=== PATIENT | female | born 1975 | race Hispanic/Latino ===

== ENCOUNTER 2023-02-22 10:42 | Emergency (ER) | payer BC ==
--- OUTSIDE RECORDS SUMMARY | 2023-02-22 10:47 | XMS REPORT | Continuity of Care Document ---
:1975 Author Organization [facility] t Address [address] [facility] [place] [address] Care Team Providers Name Role Phone QUOC LEDESMA Primary Care Physician Unavailable Elsa Pinto Attending Clinician Unavailable DARCY MCDONALD Attending Clinician Unavailable Darcy Arita Attending Clinician Unknown, Attending Attending Clinician Unavailable Luisa Ball Attending Clinician Trisha Tapia Attending Clinician LUISA LUCERO Attending Clinician Unavailable Doctor Unassigned, [place] Attending Clinician Unavailable BRIAN OLSON Attending Clinician Unavailable Brian Olson MD Attending Clinician Yuki Hoffmann Attending Clinician TRISHA CHANEL Attending Clinician Unavailable Quoc Ledesma MD Attending Clinician Unavailable UNKNOWN, ATTENDING Attending Clinician Unavailable TRAE MATHIS Attending Clinician Unavailable Dede Graf Attending Clinician Provider, [facility] Attending Clinician Unavailable Miguelina Gerber MA Attending Clinician Unavailable Lab, [facility] Attending Clinician Unavailable Payers Payer Name Policy Type Policy Number Effective Date Expiration Date Giancarlo arciniega [facility] [id number] 2022 00:00:00 [employer] 6 [id number] Common Spiri t Blue [facility] Problems Condition Condition Condition Status Onset Resolution Last Treating Co mments Source Name Details Category Date Date Treatment Clinician Date Follow-up Follow-up Disease Active Overview: Univers examinatio examinatio - Formattin ity of n n 00:00: g of this [place] note Medical might be Branch different from the original. ICD10 Diagnosis Term Tag Clerk Utility Abdominal Abdominal Disease Active Overview: Univers pain pain 03-17 Formattin ity of 00:00: g of this [place] note Medical might be Branch different from the original. 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 - [facility] depressive [facility] Irritable IBS Problem Active Common bowel (irritable Spirit syndrome bowel - [facility] syndrome) [facility] Allergies, Adverse Reactions, Alerts Allergy Allergy Status Severity Reaction(s) Onset Inactive Treating Comm ents Source Name Type Date Date Clinician SULFA Drug Active Unknown-Cmnt Univ ers (SULFONA Class 7- ity of MIDE 00:00: [place] ANTIBIOT 00 Medical ICS) Branch Sulfa Propensi Active Unknown - Unive rs (Sulfona ty to See comments 03-17 it y of mide adverse 00:00: [place] Antibiot reaction 00 Medica l ics) s Branch Sulfa Propensi Active Unknown - Unive rs (Sulfona ty to See comments 03-17 it y of mide adverse 00:00: [place] Antibiot reaction 00 Medica l ics) s Branch 0 Drug Active throat Common allergy closes Spirit - [facility] Social History Social Habit Start Date Stop Date Quantity Comments Source History of Common Spirit - Tobacco Use [facility] Sex Assigned At Common Sp chente - [facility] Exposure to 2022-06-07 2022-06-17 Not sure University SARS-CoV-2 00:00:00 11:41:00 [facility] (event) Branch Tobacco use and 2022-06-17 2022-06-17 Smokeless tobacco Un iversity of exposure 00:00:00 00:00:00 non-user [facility] Smoking Status Start Date Stop Date Source Never smoked tobacco [facility] Medications Ordered Filled Start Stop Current Ordering Indication Dosage Frequency Signature Comments Components Source Medication Medication Date Date Medication? Clinician (SIG) Name Name fluticasone 2021-08 Yes [id number] 2{spray Use 2 Univers propionate } Sprays in ity of 50 00:00: each [place] mcg/actuati 00 nostril in Ia dical on nasal the Branch spray morning. amoxicillin 2021-08- No [id number] 1{tbl} Take 1 Univers -clavulanat 0 11-07 tablet by it y of e 00:00: 05:59 mouth in [place] (AUGMENTIN) 00 :00 the Medical 875-125 mg morning Branch per tablet and 1 tablet in the evening. Do all this for 10 days. Nitrofurant 2021- No [id number] 100mg Take 1 Univers oin&Nit. 02-24-12 capsule by ity of [place] 00:00: 04:59 mouth 2 [place] (MACROBID) 00 :00 (two) Medical 100 mg times Branch capsule daily for 5 days. phenazopyri 2021- No [id number] 200mg Take 1 Univers dine 02-24 07-10 tablet by ity of (PYRIDIUM) 00:00: 04:59 mouth 3 [place] 200 mg 00 :00 (three) Medical tablet times Branch daily after meals for 3 days. cephALEXin 2020-08- No [id number] 250mg Take 1 Univers (KEFLEX) 2-24 12-30 capsule by ity of 250 mg 00:00: 05:59 mouth [place] capsule 00 :00 every 6 Medical (six) Branch hours for 5 days. amoxicillin 2020-08- No [id number] 1{tbl} Take 1 Univers -clavulanat 0-31 11-11 tablet by it y of e 875-125 00:00: 05:59 [place] mg per 00 :00 (two) Medical tablet times Branch daily for 10 days. benzonatate 0 Yes [id number] 100mg Take 1 Univers (TESSALON 4-22 capsule by ity of LUISMapplas) 100 00:00: mouth 3 [place] mg capsule 00 (three) Medica l times Branch daily. azelastine Yes [id number] 1{spray Use 1 Univers 137 mcg 4-22 } [place] in ity of (0.1 %) 00:00: each [place] nasal spray 00 nostril 2 Med ical (two) Branch times daily. Use in each nostril as directed benzonatate Yes [id number] 100mg Take 1 Univers (TESSALON 4-22 capsule by ity of CALVIN) 100 00:00: mouth 3 [place] mg capsule 00 (three) Medica l times Branch daily. azelastine Yes [id number] 1{spray Use 1 Univers 137 mcg 4-22 } [place] in ity of (0.1 %) 00:00: each [place] nasal spray 00 nostril 2 Med ical (two) Branch times daily. Use in each nostril as directed benzonatate 0 Yes [id number] 100mg Take 1 Univers (TESSALON 4-22 capsule by ity of CALVIN) 100 00:00: mouth 3 [place] mg capsule 00 (three) Medica l times Branch daily. azelastine Yes [id number] 1{spray Use 1 Univers 137 mcg 4-22 } [place] in ity of (0.1 %) 00:00: each [place] nasal spray 00 nostril 2 Med ical (two) Branch times daily. Use in each nostril as directed benzonatate 0 Yes [id number] 100mg Take 1 Univers (TESSALON 4-22 capsule by ity of LUISMapplas) 100 00:00: mouth 3 [place] mg capsule 00 (three) Medica l times Branch daily. azelastine 2020-0 Yes [id number] 1{spray Use 1 Univers 137 mcg 4-22 } [place] in ity of (0.1 %) 00:00: each [place] nasal spray 00 nostril 2 Med ical (two) Branch times daily. Use in each nostril as directed benzonatate 2020-0 Yes [id number] 100mg Take 1 Univers (TESSALON 4-22 capsule by ity of PERLES) 100 00:00: mouth 3 [place] mg capsule 00 (three) Medica l times Branch daily. azelastine 2020-0 Yes [id number] 1{spray Use 1 Univers 137 mcg 4-22 } [place] in ity of (0.1 %) 00:00: each [place] nasal spray 00 nostril 2 Med ical (two) Branch times daily. Use in each nostril as directed benzonatate 2020-0 Yes [id number] 100mg Take 1 Univers (TESSALON 4-22 capsule by ity of PERLES) 100 00:00: mouth 3 [place] mg capsule 00 (three) Medica l times Branch daily. azelastine 2020-0 Yes [id number] 1{spray Use 1 Univers 137 mcg 4-22 } [place] in ity of (0.1 %) 00:00: each [place] nasal spray 00 nostril 2 Med ical (two) Branch times daily. Use in each nostril as directed benzonatate 2020-0 Yes [id number] 100mg Take 1 Univers (TESSALON 4-22 capsule by ity of PERLES) 100 00:00: mouth 3 [place] mg capsule 00 (three) Medica l times Branch daily. azelastine 2020-0 Yes [id number] 1{spray Use 1 Univers 137 mcg 4-22 } [place] in ity of (0.1 %) 00:00: each [place] nasal spray 00 nostril 2 Med ical (two) Branch times daily. Use in each nostril as directed benzonatate 2020-0 Yes [id number] 100mg Take 1 Univers (TESSALON 4-22 capsule by ity of PERLES) 100 00:00: mouth 3 [place] mg capsule 00 (three) Medica l times Branch daily. azelastine 2020-0 Yes [id number] 1{spray Use 1 Univers 137 mcg 4-22 } [place] in ity of (0.1 %) 00:00: each [place] nasal spray 00 nostril 2 Med ical (two) Branch times daily. Use in each nostril as directed benzonatate Yes [id number] 100mg Take 1 Univers (TESSALON 4-22 capsule by ity of PERLMapplas) 100 00:00: mouth 3 [place] mg capsule 00 (three) Medica l times Branch daily. azelastine Yes [id number] 1{spray Use 1 Univers 137 mcg 4-22 } [place] in ity of (0.1 %) 00:00: each [place] nasal spray 00 nostril 2 Med ical (two) Branch times daily. Use in each nostril as directed benzonatate Yes [id number] 100mg Take 1 Univers (TESSALON 4-22 capsule by ity of LUISMapplas) 100 00:00: mouth 3 [place] mg capsule 00 (three) Medica l times Branch daily. azelastine Yes [id number] 1{spray Use 1 Univers 137 mcg 4-22 } [place] in ity of (0.1 %) 00:00: each [place] nasal spray 00 nostril 2 Med ical (two) Branch times daily. Use in each nostril as directed amoxicillin 2020- No [id number] 1{tbl} Take 1 Univers -clavulanat 4-20 05-01 tablet by it y of e 875-125 00:00: 04:59 [place] mg per 00 :00 (two) Medical tablet times Branch daily for 10 days. amoxicillin 2020- No [id number] 1{tbl} Take 1 Univers -clavulanat 4-20 05-01 tablet by it y of e 875-125 00:00: 04:59 mouth 2 [place] mg per 00 :00 (two) Medical tablet times Branch daily for 10 days. amoxicillin 2020- No [id number] 1{tbl} Take 1 Univers -clavulanat 4-20 05-01 tablet by it y of e 875-125 00:00: 04:59 mouth 2 [place] mg per 00 :00 (two) Medical tablet times Branch daily for 10 days. amoxicillin 2020- No [id number] 1{tbl} Take 1 Univers -clavulanat 4-20 - tablet by it y of e 875-125 00:00: 04:59 mouth 2 [place] mg per 00 :00 (two) Medical tablet times Branch daily for 10 days. amoxicillin 2020- No [id number] 1{tbl} Take 1 Univers -clavulanat 4-20 05-01 tablet by it y of e 875-125 00:00: 04:59 mouth 2 [place] mg per 00 :00 (two) Medical tablet times Branch daily for 10 days. dexAMETHaso 2020- No [id number] 12mg Univers ne 12-07 ity of (DECADRON) 18:15: 17:17 [place] tablet 12 00 :00 Medical mg Branch dexAMETHaso 2020- No [id number] 12mg 12 mg, Univers ne 12-07 Oral, ity of (DECADRON) 18:15: 17:17 ONCE, 1 [place] tablet 12 00 :00 dose, Sun Medic al mg 12/07/20 at Branch 1315, Routine buPROPion 2020-0 Yes 150mg Take 150 Uni vers XL 3-15 mg by ity of (WELLBUTRIN 17:12: mouth [place] XL) 150 mg 19 daily. Medical 24 hr Branch tablet buPROPion 2020-0 Yes 150mg Take 150 Uni vers XL 3-15 mg by ity of (WELLBUTRIN 17:12: mouth [place] XL) 150 mg 19 daily. Medical 24 hr Branch tablet buPROPion 2020-0 Yes 150mg Take 150 Uni vers XL 3-15 mg by ity of (WELLBUTRIN 17:12: mouth [place] XL) 150 mg 19 daily. Medical 24 hr Branch tablet buPROPion 2020-0 Yes 150mg Take 150 Uni vers XL 3-15 mg by ity of (WELLBUTRIN 17:12: mouth [place] XL) 150 mg 19 daily. Medical 24 hr Branch tablet buPROPion 2020-0 Yes 150mg Take 150 Uni vers XL 3-15 mg by ity of (WELLBUTRIN 17:12: mouth [place] XL) 150 mg 19 daily. Medical 24 hr Branch tablet buPROPion 2020-0 Yes 150mg Take 150 Uni vers XL 3-15 mg by ity of (WELLBUTRIN 17:12: mouth [place] XL) 150 mg 19 daily. Medical 24 hr Branch tablet buPROPion 2020-0 Yes 150mg Take 150 Uni vers XL 3-15 mg by ity of (WELLBUTRIN 17:12: mouth [place] XL) 150 mg 19 daily. Medical 24 hr Branch tablet buPROPion 2020-0 Yes 150mg Take 150 Uni vers XL 3-15 mg by ity of (WELLBUTRIN 17:12: mouth [place] XL) 150 mg 19 daily. Medical 24 hr Branch tablet buPROPion 2020-0 Yes 150mg Take 150 Uni vers XL 3-15 mg by ity of (WELLBUTRIN 17:12: mouth [place] XL) 150 mg 19 daily. Medical 24 hr Branch tablet buPROPion 2020-0 Yes 150mg Take 150 Uni vers XL 3-15 mg by ity of (WELLBUTRIN 17:12: mouth [place] XL) 150 mg 19 daily. Medical 24 hr Branch tablet buPROPion 2020-0 Yes 150mg Take 150 Uni vers XL 3-15 mg by ity of (WELLBUTRIN 17:12: mouth [place] XL) 150 mg 19 daily. Medical 24 hr Branch tablet buPROPion 2020-0 Yes 150mg Take 150 Uni vers XL 3-15 mg by ity of (WELLBUTRIN 12:12: mouth [place] XL) 150 mg 19 daily. Medical 24 hr Branch tablet buPROPion 2020-0 Yes 150mg Take 150 Uni vers XL 3-15 mg by ity of (WELLBUTRIN 12:12: mouth [place] XL) 150 mg 19 daily. Medical 24 hr Branch tablet buPROPion 2020-0 Yes 150mg Take 150 Uni vers XL 3-15 mg by ity of (WELLBUTRIN 12:12: mouth [place] XL) 150 mg 19 daily. Medical 24 hr Branch tablet buPROPion 2020-0 Yes 150mg Take 150 Uni vers XL 3-15 mg by ity of (WELLBUTRIN 12:12: mouth [place] XL) 150 mg 19 daily. Medical 24 hr Branch tablet buPROPion 2020-0 Yes 150mg Take 150 Uni vers XL 3-15 mg by ity of (WELLBUTRIN 12:12: mouth [place] XL) 150 mg 19 daily. Medical 24 hr Branch tablet buPROPion 2020-0 Yes 150mg Take 150 Uni vers XL 3-15 mg by ity of (WELLBUTRIN 12:12: mouth [place] XL) 150 mg 19 daily. Medical 24 hr Branch tablet buPROPion 2020-0 Yes 150mg Take 150 Uni vers XL 3-15 mg by ity of (WELLBUTRIN 12:12: mouth [place] XL) 150 mg 19 daily. Medical 24 hr Branch tablet escitalopra 2020-0 Yes Univer s m oxalate 3-14 ity of 10 mg 00:00: [place] tablet 00 Medical Branch escitalopra 2020-0 Yes Univer s m oxalate 3-14 ity of 10 mg 00:00: [place] tablet 00 Medical Branch escitalopra 2020-0 Yes Univer s m oxalate 3-14 ity of 10 mg 00:00: [place] tablet 00 Medical Branch escitalopra 2020-0 Yes Univer s m oxalate 3-14 ity of 10 mg 00:00: [place] tablet 00 Medical Branch escitalopra 2020-0 Yes Univer s m oxalate 3-14 ity of 10 mg 00:00: [place] tablet 00 Medical Branch escitalopra 2020-0 Yes Univer s m oxalate 3-14 ity of 10 mg 00:00: [place] tablet 00 Medical Branch escitalopra 2020-0 Yes Univer s m oxalate 3-14 ity of 10 mg 00:00: [place] tablet 00 Medical Branch escitalopra 2020-0 Yes Univer s m oxalate 3-14 ity of 10 mg 00:00: [place] tablet 00 Medical Branch escitalopra 2020-0 Yes Univer s m oxalate 3-14 ity of 10 mg 00:00: [place] tablet 00 Medical Branch escitalopra 2020-0 Yes Univer s m oxalate 3-14 ity of 10 mg 00:00: [place] tablet 00 Medical Branch escitalopra 2020-0 Yes Univer s m oxalate 3-14 ity of 10 mg 00:00: [place] tablet 00 Medical Branch escitalopra 2020-0 Yes Univer s m oxalate 3-14 ity of 10 mg 00:00: [place] tablet 00 Medical Branch escitalopra 2020-0 Yes Univer s m oxalate 3-14 ity of 10 mg 00:00: [place] tablet 00 Medical Branch escitalopra 2020-0 Yes Univer s m oxalate 3-14 ity of 10 mg 00:00: [place] tablet 00 Medical Branch escitalopra 2020-0 Yes Univer s m oxalate 3-14 ity of 10 mg 00:00: [place] tablet 00 Medical Branch escitalopra 2020-0 Yes Univer s m oxalate 3-14 ity of 10 mg 00:00: [place] tablet 00 Medical Branch escitalopra 2019-0 Yes Univer s m oxalate 3-14 ity of 10 mg 00:00: [place] tablet 00 Medical Branch escitalopra 2020-0 Yes Univer s m oxalate 3-14 ity of 10 mg 00:00: [place] tablet 00 Medical Branch Lexapro Lexapro 2017- Yes Elsa take one Co mmon 2-10 [place] tablet by Spirit 00:00: mouth - [facility] 00 daily [facility] buPROPion 2016-08 Yes 150mg Take 150 Uni vers XL 2-24 mg by ity of (WELLBUTRIN 21:25: mouth [place] XL) 150 mg 50 daily. Medical 24 hr Branch tablet Creon Creon Yes Elsa 3 capsule Common [place] with each Spirit meal; 1 - [facility]I capsule [facility] Lexapro 10 Lexapro 10 No QD MG MG Lexapro 10 Lexapro 10 No QD Lexapro 10 MG MG MG Lexapro 10 Lexapro 10 No 1{table QD Lexapro 10 MG MG t} MG Lexapro 10 Lexapro 10 No QD Lexapro 10 MG MG MG Lexapro 10 Lexapro 10 No 1{table QD Lexapro 10 MG MG t} MG Immunizations Ordered Filled Immunization Date Status Comments Sourc e Immunization Name Name Moderna COVID-19 Moderna COVID-19 2021-08-26 Completed Co mmon Spirit - Vaccine (Low Dose Vaccine (Low Dose 11:35:00 [facility] Booster) Booster) [facility] SARS-COV-2 COVID-19 2020-12-17 Completed Unive rsity of MODERNA VACCINE 00:00:00 [facility] SARS-COV-2 COVID-19 2020-12-17 Completed Unive rsity of MODERNA VACCINE 00:00:00 [facility] SARS-COV-2 COVID-19 2020-12-17 Completed Unive rsity of MODERNA VACCINE 00:00:00 [facility] SARS-COV-2 COVID-19 2020-12-17 Completed Unive rsity of MODERNA VACCINE 00:00:00 [facility] SARS-COV-2 COVID-19 2020-12-17 Completed Unive rsity of MODERNA VACCINE 00:00:00 [place] Med ical Branch SARS-COV-2 COVID-19 2020-12-17 Completed Unive rsity of MODERNA VACCINE 00:00:00 [place] Med ical Branch SARS-COV-2 COVID-19 2020-12-17 Completed Unive rsity of MODERNA 12+ YRS 00:00:00 [place] Med ical VACCINE Branch SARS-COV-2 COVID-19 2020-11-16 Completed Unive rsity of MODERNA VACCINE 00:00:00 [place] Med ical Branch SARS-COV-2 COVID-19 2020-11-16 Completed Unive rsity of MODERNA VACCINE 00:00:00 [place] Med ical Branch SARS-COV-2 COVID-19 2020-11-16 Completed Unive rsity of MODERNA VACCINE 00:00:00 [place] Med ical Branch SARS-COV-2 COVID-19 2020-11-16 Completed Unive rsity of MODERNA VACCINE 00:00:00 [place] Med ical Branch SARS-COV-2 COVID-19 2020-11-16 Completed Unive rsity of MODERNA VACCINE 00:00:00 [place] Med ical Branch SARS-COV-2 COVID-19 2020-11-16 Completed Unive rsity of MODERNA VACCINE 00:00:00 [place] Med ical Branch SARS-COV-2 COVID-19 2020-11-16 Completed Unive rsity of MODERNA VACCINE 00:00:00 [place] Med ical Branch SARS-COV-2 COVID-19 2020-11-16 Completed Unive rsity of MODERNA VACCINE 00:00:00 [place] Med ical Branch SARS-COV-2 COVID-19 2020-11-16 Completed Unive rsity of MODERNA VACCINE 00:00:00 [place] Med ical Branch SARS-COV-2 COVID-19 2020-11-16 Completed Unive rsity of MODERNA VACCINE 00:00:00 [place] Med ical Branch SARS-COV-2 COVID-19 2020-11-16 Completed Unive rsity of MODERNA VACCINE 00:00:00 [place] Med ical Branch SARS-COV-2 COVID-19 2020-11-16 Completed Unive rsity of MODERNA VACCINE 00:00:00 [place] Med ical Branch SARS-COV-2 COVID-19 2020-11-16 Completed Unive rsity of MODERNA VACCINE 00:00:00 [facility] [place] [facility] ical Branch SARS-COV-2 COVID-19 2020-11-16 Completed Unive rsity of MODERNA 12+ YRS 00:00:00 [facility] VACCINE Branch Vital Signs Vital Name Observation Time Observation Value Comments Source Systolic blood 2022-06-17 17:02:00 122 mm[Hg] Univer sity of pressure [place] [facility] [place] Diastolic blood 2022-06-17 17:02:00 84 mm[Hg] Unive rsity of pressure [facility] Heart rate 2022-06-17 17:02:00 81 /min Universi ty of [facility] Body temperature 2022-06-17 17:02:00 37 Sindi Univ ersity of [facility] Respiratory rate 2022-06-17 17:02:00 17 /min Univ ersity of [facility] Body height 2022-06-17 17:02:00 165.1 cm Universi ty of [facility] Body weight 2022-06-17 17:02:00 105.008 kg Universi ty of [facility] BMI 2022-06-17 17:02:00 38.52 kg/m2 Universi ty of [facility] Oxygen saturation in 2022-06-17 17:02:00 96 /min [facility] Arterial blood by [facility] Pulse oximetry Branch Systolic blood 2022-02-24 14:27:00 122 mm[Hg] Univer sity of pressure [facility] Diastolic blood 2022-02-24 14:27:00 75 mm[Hg] Unive rsity of pressure [facility] Heart rate 2022-02-24 14:27:00 65 /min Universi ty of [facility] Body temperature 2022-02-24 14:27:00 36.83 Sindi Univ ersity of [facility] Respiratory rate 2022-02-24 14:27:00 18 /min Univ ersity of [facility] Body height 2022-02-24 14:27:00 165.1 cm Universi ty of [facility] Body weight 2022-02-24 14:27:00 106.459 kg Universi ty of [facility] BMI 2022-02-24 14:27:00 39.06 kg/m2 Universi ty of [place] [facility] Oxygen saturation in 2022-02-24 14:27:00 96 /min University of Arterial blood by [facility] Pulse oximetry Branch height 2021-08-24 10:00:00 65.5 [in_i] [facility] weight 2021-08-24 10:00:00 235 [lb_av] [facility] temperature 2021-08-24 10:00:00 98.8 [degF] [facility] bmi 2021-08-24 10:00:00 38.51 kg/m2 [facility] oximetry 2021-08-24 10:00:00 97 % [facility] respiratory rate 2021-08-24 10:00:00 18 /min Comm on [facility] blood pressure 2021-08-24 10:00:00 110 mm[Hg] Common [facility] - systolic [facility] blood pressure 2021-08-24 10:00:00 60 mm[Hg] [facility] diastolic [facility] Systolic blood 2021-08-14 19:54:00 114 mm[Hg] Univer sity of pressure [facility] Diastolic blood 2021-08-14 19:54:00 80 mm[Hg] Unive rsity of [facility] Heart rate 2021-08-14 19:54:00 72 /min Universi [facility] Body temperature 2021-08-14 19:54:00 36.5 Sindi [facility] [place] [facility] Body height 2021-08-14 19:54:00 165.1 cm Universi ty of [place] [facility] [place] Body weight 2021-08-14 19:54:00 104.327 kg Universi [facility] BMI 2021-08-14 19:54:00 38.27 kg/m2 Universi [facility] Oxygen saturation in 2021-08-14 19:54:00 98 /min University of Arterial blood by [facility] Pulse oximetry Branch Systolic blood 2021-06-21 16:07:00 121 mm[Hg] Univer sity of pressure [facility] Diastolic blood 2021-06-21 16:07:00 67 mm[Hg] Unive rsity of pressure [place] [facility] Heart rate 2021-06-21 16:07:00 72 /min Universi ty of [place] [facility] Body temperature 2021-06-21 16:07:00 36.78 Sidni Univ ersity of [place] [facility] Body height 2021-06-21 16:07:00 165.1 cm Universi ty of [place] [facility] Body weight 2021-06-21 16:07:00 104.412 kg Universi ty of [place] [facility] BMI 2021-06-21 16:07:00 38.31 kg/m2 Universi ty of [place] [facility] Oxygen saturation in 2021-06-21 16:07:00 96 /min University of Arterial blood by [facility] Pulse oximetry Branch Systolic blood 2021-06-16 21:10:00 123 mm[Hg] Univer sity of pressure [place] [facility] Diastolic blood 2021-06-16 21:10:00 80 mm[Hg] Unive rsity of pressure [place] [facility] Heart rate 2021-06-16 21:10:00 94 /min Universi ty of [place] [facility] Body temperature 2021-06-16 21:10:00 36.72 Sindi Univ ersity of [place] [facility] Respiratory rate 2021-06-16 21:10:00 16 /min Univ ersity of [place] [facility] Body height 2021-06-16 21:10:00 165.1 cm Universi ty of [place] [facility] Body weight 2021-06-16 21:10:00 105.036 kg Universi ty of [place] [facility] BMI 2021-06-16 21:10:00 38.53 kg/m2 Universi ty of [place] [facility] Oxygen saturation in 2021-06-16 21:10:00 98 /min University of Arterial blood by [facility] Pulse oximetry Branch Systolic blood 2020-12-11 16:05:00 115 mm[Hg] Univer sity of pressure [place] [facility] Diastolic blood 2020-12-11 16:05:00 74 mm[Hg] Unive rsity of pressure [place] [facility] Heart rate 2020-12-11 16:05:00 71 /min Universi ty of [place] [facility] Body temperature 2020-12-11 16:05:00 38.06 Sindi Univ ersity of [place] [facility] Respiratory rate 2020-12-11 16:05:00 18 /min Univ ersity of [place] [facility] Body height 2020-12-11 16:05:00 165.1 cm Universi ty of [place] [facility] Body weight 2020-12-11 16:05:00 99.791 kg Universi ty of [place] [facility] BMI 2020-12-11 16:05:00 36.61 kg/m2 Universi ty of [place] [facility] Oxygen saturation in 2020-12-11 16:05:00 97 /min University of Arterial blood by [facility] Pulse oximetry Branch Systolic blood 2020-12-07 16:48:00 105 mm[Hg] Univer sity of pressure [place] [facility] Diastolic blood 2020-12-07 16:48:00 68 mm[Hg] Unive rsity of pressure [place] [facility] Heart rate 2020-12-07 16:44:00 68 /min Universi ty of [place] [facility] Body temperature 2020-12-07 16:44:00 36.72 Sindi Univ ersity of [place] [facility] Respiratory rate 2020-12-07 16:44:00 18 /min Univ ersity of [place] [facility] Body height 2020-12-07 16:44:00 165.1 cm [facility] Body weight 2020-12-07 16:44:00 99.791 kg [facility] BMI 2020-12-07 16:44:00 36.61 kg/m2 [facility] Oxygen saturation in 2020-12-07 16:44:00 100 /min [facility] Arterial blood by [facility] Pulse oximetry Branch Systolic blood 2020-11-09 18:14:00 127 mm[Hg] [facility] Diastolic blood 2020-11-09 18:14:00 71 mm[Hg] [facility] Heart rate 2020-11-09 18:14:00 64 /min [facility] Body temperature 2020-11-09 18:14:00 36.44 Sindi [facility] Respiratory rate 2020-11-09 18:14:00 18 /min [facility] Body height 2020-11-09 18:14:00 165.1 cm [facility] Body weight 2020-11-09 18:14:00 102.059 kg [facility] BMI 2020-11-09 18:14:00 37.44 kg/m2 [facility] Oxygen saturation in 2020-11-09 18:14:00 97 /min [facility] Arterial blood by [facility] Pulse oximetry Branch Systolic blood 2019-11-04 17:10:00 115 mm[Hg] [facility] Diastolic blood 2019-11-04 17:10:00 72 mm[Hg] [facility] Heart rate 2019-11-04 17:10:00 66 /min [facility] Body temperature 2019-11-04 17:10:00 36.83 Sindi [facility] Respiratory rate 2019-11-04 17:10:00 18 /min [facility] Body height 2019-11-04 17:10:00 165.1 cm [facility] Body weight 2019-11-04 17:10:00 102.513 kg [facility] BMI 2019-11-04 17:10:00 37.61 kg/m2 [facility] Oxygen saturation in 2019-11-04 17:10:00 98 /min [facility] Arterial blood by [facility] Pulse oximetry Branch Systolic blood 2019-11-04 17:10:00 115 mm[Hg] [facility] Diastolic blood 2019-11-04 17:10:00 72 mm[Hg] [facility] Heart rate 2019-11-04 17:10:00 66 /min [facility] Body temperature 2019-11-04 17:10:00 36.83 Sindi [facility] Respiratory rate 2019-11-04 17:10:00 18 /min [facility] Body height 2019-11-04 17:10:00 165.1 cm [facility] Body weight 2019-11-04 17:10:00 102.513 kg [facility] BMI 2019-11-04 17:10:00 37.61 kg/m2 [facility] Oxygen saturation in 2019-11-04 17:10:00 98 /min [facility] Arterial blood by [facility] Pulse oximetry Branch Procedures Procedure Date / Time Performed Performing Clinician Karen evans POCT MOLECULAR FLU 2022-06-17 17:07:00 Unknown, [facility] 2022-02-24 14:16:35 Doctor Unassigned, No [facility] POCT URINALYSIS 2021-08-14 00:00:00 Brian Olson [facility] POCT GRP A STREP 2021-06-16 21:28:00 Darío [facility] ([facility] XR CHEST 2 VW 2020-12-11 17:12:23 Dede Thompson [facility] ASSIGNMENT OF BENEFITS 2020-12-11 16:00:51 Doctor Unassigned, No [facility] POCT TEST 2020-12-11 00:00:00 Dede Thompson [facility] POCT GRP A STREP 2020-12-07 17:06:[address] [facility] ([facility]) [facility] ASSIGNMENT OF BENEFITS 2019-11-04 16:59:23 Doctor Unassigned, No [facility] POCT GRP A STREP 2019-11-04 00:00:00 Darío [facility]) [facility] POCT FLU A AND B 2019-11-04 00:00:00 Darío [facility]) [facility] Encounters Start End Encounter Admission Attending Care Care Encounter Source Date/Time Date/Time Type Type Clinicians Facility Department ID 2021-09-16 Outpatient BENJAMÍN Pinto [facility] Common 14:31:52 Elsa [facility] 2021-09-16 Outpatient BENAJMÍN Pinto [facility] Common 14:31:15 Elsa [facility] 2021-09-16 Outpatient BENJAMÍN Pinto [facility] Common 14:30:55 Elsa [facility] 2021-09-16 Outpatient BENJAMÍN Pinto [facility] [id number] Common 13:10:29 Elsa 50042 [facility] 2021-09-16 Outpatient [place], STLMLC STLC [id number] Common 11:46:17 Elsa 57299 [facility] 2022-06-17 2022-06-17 Outpatient R HARRY [facility] [id number] Univers 11:40:00 12:30:36 DARCY caban o westley [facility] 2022-06-17 2022-06-17 Urgent Darcy Mcdonald [facility] 1.2.840. 114 [id number] Univers 11:40:00 12:30:36 Care Unknown, [facility] [id number] [place] [id number] Richar as SHAW?BLEA [id number] [address] MEDICAL OFFICE BUILDING 2022-02-24 2022-02-24 Urgent [address] Lucero [facility] 1.2.840 .114 [id number] Univers 10:00:00 10:20:00 Care Green, [facility] [id number] [place] [id number] Richar as SHAW?BLEA [phone] [address] MEDICAL OFFICE BUILDING 2022-02-24 2022-02-24 [facility] [id number] Univers 10:00:00 09:48:19 LUISA caban o [facility] 2022-02-24 2022-02-24 Orders Doctor LEONG 1.2.840.114 [id number] Univers 00:00:00 00:00:00 Only Unassigned, CHERRIE [id number] [facility] [id number] [place] as [phone] [address] 2021-08-26 2021-08-26 (COVID STLMLC STLMLC [id number] Co mmon 00:00:00 00:00:00 Inj) COVID Spi rit Injection - [facility] 2021-08-24 2021-08-24 OFFICE STLMLC STLC [id number] Co mmon 00:00:00 00:00:00 VISIT EST Spir it PT LEVEL 3 - [facility] 2021-08-19 2021-08-19 (TEL) STLMLC STLMLC [id number] Co mmon 00:00:00 00:00:00 [facility] 2021-08-14 2021-08-14 Outpatient R WESLEY [facility] [id number] Univers 14:00:00 15:38:[address] [facility] 2021-08-14 2021-08-[address] [facility] 1.2.840.114 [id number] Univers 14:00:00 14:20:00 [facility] [id number] [facility] [place] [id number] [place]ar as SHAW?BLEA [phone] Ia dical [facility] OFFICE [facility] 2021-06-21 2021-06-21 Urgent [address] Chanel [facility] 1..840.114 [id number] Univers 11:01:11 11:21:11 Care hSi [facility] [id number] ity [facility] [id number] [place]ar as SHAW?BLEA [phone] [facility] [address] MEDICAL OFFICE [facility] 2021-06-21 2021-06-21 Outpatient R DARÍO [facility] [id number] Univers 11:00:00 11:00:00 TRISHA [facility] 2021-06-18 2021-06-[address] [facility] 1.2.840.114 [id number] Univers 00:00:00 00:00:00 Secure Msg [place] [id number] [facility] [id number] [phone] Ia dicwilfred [facility] 2021-06-16 2021-06-16 Outpatient R LEONIDES [facility] [id number] Univers 16:40:00 16:40:[address] [facility] 2021-06-16 2021-06-16 Urgent Darío Trisha [facility] 1.2.840.114 [id number] Univers 16:02:26 16:38:27 Care [facility] [id number] [facility] [id number] [place] as Shaw?Blea [phone] Ia dical kney [address] [facility] 2020-12-17 2020-12-17 Outpatient R DEL [facility] [id number] Univers 12:10:00 12:10:00 TRAE [facility] 2020-12-14 2020-12-14 Outpatient [facility] [id number] Univers 17:05:00 17:05:00 [facility] 2020-12-11 2020-12-11 [facility] 1.2.840.114 [id number] Univers 11:55:00 23:59:00 Encounter Dede Carrasquillo [id number] ity [id number] [place] [phone] [facility] [address] 2020-12-11 2020-12-11 Urgent Provider, [facility] Urgent Care [facility] 1.2.840.114 [id number] Univers 11:03:07 12:10:56 Care Dede [facility] [id number] [place] [id number] Richar as Professio [phone] Ia dical aden [address] One 2020-12-11 2020-12-11 Outpatient R [facility] [id number] Univers 11:40:00 11:40:00 ity of [facility] 2020-12-11 2020-12-11 Orders Doctor LEONG 1.2.840.114 [id number] Univers 00:00:00 00:00:00 Only Unassigned, CHERRIE [id number] [facility] [place] [facility] 4.2.7.2.686 Rich[place] as [phone] [facility] [address] 2020-12-09 2020-12-[address] [facility] 1.2.840.114 [id number] Univers 00:00:00 00:00:00 Secure Msg Miguelina Neida [id number] [id number] Profess[place] [phone] Ia dical nal [address] 2020-12-08 2020-12-[address] [facility] 1.2.840.114 [id number] Univers 00:00:00 00:00:00 Secure Msg [place]es [place] [id number] ity of [place] [id number] [place] [facility] [phone] [address] 2020-12-07 2020-12-07 Urgent Provider, [facility] 1.2.840.114 [id number] Univers 11:39:04 12:45:10 Care Green, [facility] [id number] [place] [id number] [place] as Professio [phone] [facility] nal [address] [place] [address] One 2020-12-07 2020-12-07 [facility] [id number] Univers 11:40:00 11:40:00 [facility] 2020-11-16 2020-11-16 Outpatient R DEL [facility] [id number] Univers 16:30:00 16:30:00 TRAE [facility] 2020-11-09 2020-11-09 Outpatient [facility] [id number] Univers 13:40:00 13:40:00 [facility] 2020-11-09 2020-11-09 Urgent Provider, [facility] 1.2.840.114 [id number] Univers 13:12:09 13:32:09 Care Green, [facility] [id number] [place] [id number] Richar as Professio [phone] Ia dical nal [address] [place] [address] Office [facility] One 2020-11-09 2020-11-09 Laboratory Lab, Adc Fam Pob I [facility] 1.2. 840.114 [id number] Univers 13:03:45 13:23:45 Only Green, [facility] [id number] [place] [id number] Richar as Professio [phone] Ia dical nal [address] One 2020-11-09 2020-11-09 Outpatient R DARÍO [facility] [id number] Univers 13:00:00 13:00:00 TRISHA it[facility] 2020-07-25 2020-07-25 Outpatient STLMLC STLMLC [id number] Common 00:00:00 00:00:00 [facility] 2020-01-15 2020-01-15 Outpatient [facility] [id number] Common 14:33:00 14:33:00 t [facility] [address] [facility] 2020-01-03 2020-01-03 Outpatient [facility] [place] [id number] Common 13:59:00 13:59:00 t [facility] [address] [facility] 2020-01-03 2020-01-03 Outpatient Antonette [facility] [id number] Common 11:06:00 11:06:00 [facility] [address] [facility] 2019-11-04 2019-11-[address] [facility] 1.2.840.114 [id number] Univers 11:58:06 02:36:42 Care Unknown, Attending Health [id number] ity of Surgical [id number] [place]ar as Specialti [phone] Ia dical [address] 2019-11-04 2019-11-[address] [facility] 1.2.840.114 [id number] 11:58:06 02:36:42 Care [facility] [id number] Surgical [id number] Specialti [phone] [address] 2019-11-04 2019-11-04 Outpatient R UNKNOWN, [facility] [id number] Univers 12:00:00 12:00:00 ATTENDING ity of [facility] 2019-11-04 2019-11-04 Orders Doctor LEONG 1.2.840.114 [id number] Univers 00:00:00 00:00:00 Only Unassigned, CHERRIE 350.1.13.10 [facility] [place] [facility] 4.2.7.2.686 Rich[place] as [phone] [address] 2019-07-09 2019-07-09 Outpatient [facility] [id number] Common 16:00:00 16:00:[address] [facility] 2019-06-04 2019-06-04 Outpatient [facility] [id number] Common 13:00:00 13:00:[address] [facility] 2018-07-31 2018-07-31 Outpatient [facility] [id number] Common 10:18:00 10:18:[address] [facility] 2018-03-03 2018-03-03 Outpatient [facility] [id number] Common 17:42:00 17:42:[address] [facility] 2018-03-03 2018-03-03 Outpatient [facility] [id number] Common 08:28:00 08:28:[address] [facility] 2018-03-02 2018-03-02 Outpatient [facility] [id number] Common 11:15:00 11:15:[address] [facility] 2018-01-12 2018-01-12 Outpatient [facility] [id number] Common 16:39:00 16:39:[address] [facility] 2018-01-12 2018-01-12 Outpatient [facility] [id number] Common 08:47:00 08:47:[address] [facility] 2018-01-05 2018-01-05 Outpatient [facility] [id number] Common 10:30:00 10:30:[address] [facility] Results Test Description Test Time Test Comments Results Result Comments Source POCT MOLECULAR FLU 2022-06-17 17:19:51 Test Item Value Reference Range Interpretation Comme nts POCT Molecular FluA (test code = 36737-7) Negative Negative POCT Molecular FluB (test code = 92092-3) Negative Negative Lab Interpretation (test code = 71628-8) [facility] URINALYSIS W SPECIFIC [id number] 20:42:00 Test Item Value Reference Range Interpretation Comments POCT U SP GRAV (test code = 1.025 mg/dl 1.005-1.025 3255) POCT PH U (test code = 3254) 5 mg/dl 5-8 POCT U LEUK EST (test code = 2+ Negative - Negative 3263) POCT U NIT (test code = 3262) Positive Negative - Negative POCT U PROT (test code = Negative Negative - Negative 3259) POCT U GLU (test code = 3256) Negative Negative - Negative POCT U KETONE (test code = Negative Negative - Negative 3258) POCT U UROBILI (test code = 12+ 0.2-1 3260) POCT U BILI (test code = 3+ Negative - Negative 3261) POCT U BLD (test code = 3257) 250+ Negative - Negative POCT U COLOR (test code = Dark Lisa 3266) POCT U APPEAR (test code = Cloudy 3267) [facility] GRP A STREP (MOLECULAR)2021-06-16 21:28:00 Test Item Value Reference Range Interpretation Comments POCT GP A STREP (test code = Negative Negative - Negative 79926-8) Lab Interpretation (test code = Normal 23111-2) [facility] [id number] 17:17:08HISTORY: Cough. TECHNIQUE: PA and lateral views of the chest are obtained. FINDINGS: No acute pneumonia detected. No pneumothorax or pleural effusionor pulmonary congestion. Cardiothoracic ratio of approximately 13.5/28.7 cmis consistent with normal cardiac size.Cholecystectomy clips are seen in the upper abdomen, visualized in thelateral view. No compression fracture deformity detected in the thoracicvertebral bodies. No aggressive bone lesions visualized. CONCLUSIONS: No signs of acute cardiopulmonary disease.[facility], Radiant Results Inft User - 12/11/2020 12:18 PM CDTHISTORY: Cough.TECHNIQUE: PA and lateral views of the chest are obtained.FINDINGS: No acute pneumonia detected. No pneumothorax or pl eural effusionor pulmonary congestion. Cardiothoracic ratio of approximately 13.5/28.7 cmis consistent with normal cardiac size.Cholecystectomy clips are seen in the upper abdomen, visualized in thelateral view. No compression fracture deformity detected in the thoracicvertebral bodies. No aggressive bone lesions visualized.CONCLUSIONS: No signs of acute cardiopulmonary disease. [facility] [id number] 16:57:00 Test Item Value Reference Range Interpretation Comments POCT PREG (test code = 1605) Negative On board controls acceptable with C No Line (test code = 3574) POCT PREG LOT # (test code = 3575) POCT PREG TEST DATE (test code = 3576) [facility] [id number] 16:57:00 Test Item Value Reference Range Interpretation Comments POCT PREG (test code = 1605) Negative On board controls acceptable with C No Line (test code = 3574) POCT PREG LOT # (test code = 3575) POCT PREG TEST DATE (test code = 3576) [facility] GRP A STREP (MOLECULAR)2020-12-07 17:16:00 Test Item Value Reference Range Interpretation Comments POCT GP A STREP (test neg Negative - code = 82758-6) Negative SEDA (test code = SEDA) accurate development and interpretation of all internal controls Lab Interpretation Normal (test code = 20484-8) [facility] FLU A AND B (MOLECULAR)2019-11-04 17:21:00 Test Item Value Reference Range Interpretation Comments POCT INFLUENZA A (test code = negative Negative - Negative 3840) POCT INFLUENZA B (test code = negative Negative - Negative 3841) Lab Interpretation (test code = Normal 82977-9) [facility] FLU A AND B (MOLECULAR)2019-11-04 17:21:00 Test Item Value Reference Range Interpretation Comments POCT INFLUENZA A (test code = negative Negative - Negative 3840) POCT INFLUENZA B (test code = negative Negative - Negative 3841) Lab Interpretation (test code = Normal 78687-2) [facility] GRP A STREP (MOLECULAR)2019-11-04 17:18:00 Test Item Value Reference Range Interpretation Comments POCT GP A STREP (test code = negative Negative - Negative 18474-1) [facility] GRP A STREP (MOLECULAR)2019-11-04 17:18:00 Test Item Value Reference Range Interpretation Comments POCT GP A STREP (test code = negative Negative - Negative 93091-4) [facility]
[2023-02-22] MEDS ORDERED: KETOROLAC 30 MG/ML INJ ONE (11:18)
--- NOTE | 2023-02-22 11:29 | RAD REPORT ---
EXAM DESCRIPTION: CT - Stone Protocol - 02/22/2023 11:10 am CLINICAL HISTORY: Abdominal pain. Right flank pain COMPARISON: 2017 TECHNIQUE: Computed axial tomography of the abdomen pelvis was obtained without oral or IV contrast. Lack of IV and oral contrast limits evaluation of solid organs, appendix, bowel, and vessels. Carmen l reformatted images were obtained and reviewed. All CT scans are performed using dose optimization technique as appropriate and may include automated exposure control or mA/KV adjustment according to patient size. FINDINGS: A 2 millimeter calculus right kidney. No hydronephrosis. A left renal calculus is not pres ent. No ureteral/bladder calculus. Cholecystectomy Borderline splenomegaly. The liver, adrenals and pancreas grossly normal There is no evidence of diverticulitis. The appendix appears normal No adnexal mass. Tubal ligation coils IMPRESSION: 2 millimeter nonobstructing right renal calculus
[2023-02-22 12:05] LABS: Specific Gravity 1.021 (1.005-1.030); Urine Bacteria >50 /HPF (<20); Urine Bilirubin NEGATIVE (Negative); Urine Blood Trace (Negative); Urine Clarity Extremely Turbid (Clear); Urine Color Light-Yellow (Yellow); Urine Glucose NEGATIVE (Negative); Urine Mucus 1+ /HPF (None Seen); Urine Protein TRACE (Negative); Urine Urobilinogen Normal (Normal); Urine pH 5.5 (5.0-7.0)
--- NOTE | 2023-02-22 13:03 | ER ---
Nurse's Notes [facility] Name: Shelby Pop Age: 47 yrs Sex: Female : 1975 Arrival Date: 02/22/2023 Time: 10:42 Bed 12 Private MD: Diagnosis: Calculus of kidney;UTI/ Urinary tract infection, site not specified;Low back pain Presentation: 02/22 10:55 Chief complaint: Patient states: Right low back pain x 2-3 days. Coronavirus screen: At [facility] this time, the client does not indicate any symptoms associated with coronavirus-19. Ebola Screen: No symptoms or risks identified at this time. Initial Sepsis Screen: Does the patient meet any 2 criteria? No. Patient's initial sepsis screen is negative. Does the patient have a suspected source of infection? No. Patient's initial sepsis screen is negative. Risk Assessment: Do you want to hurt yourself or someone else? Patient reports no desire to harm self or others. Onset of symptoms was February 19, 2023. 10:55 Method Of Arrival: Ambulatory [facility] 10:55 Acuity: MOISE 4 jl7 Triage Assessment: 10:57 General: Appears in no apparent distress. uncomfortable, Behavior is calm, cooperative, jl7 appropriate for age. Pain: Complains of pain in right low back Pain currently is 8 out of 10 on a pain scale. 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 - Social history:: Smoking status: Patient denies any tobacco usage or history of. Screenin:57 [facility] ED Fall Risk Assessment (Adult) History of falling in the last 3 months, [facility] including since admission No falls in past 3 months (0 pts) Confusion or Disorientation No (0 pts) Intoxicated or Sedated No (0 pts) Impaired Gait No (0 pts) Mobility Assist Device Used No (0 pt) Altered Elimination No (0 pt) Score/Fall Risk Level 0 - 2 = Low Risk Oriented to surroundings, Maintained a safe environment. Abuse screen: Denies threats or abuse. Denies injuries from another. Nutritional screening: No deficits noted. Tuberculosis screening: No symptoms or risk factors identified. Assessment: 11:57 Reassessment: Patient appears in no apparent distress at this time. Patient and/or jl7 family updated on plan of care and expected duration. Pain level reassessed. Patient is alert, oriented x 3, equal unlabored respirations, skin warm/dry/pink. Pain rated 2/10 at this time. Patient states feeling better. Vital Signs: 10:55 BP 135 / 78; Pulse 91; Resp 17; Temp 98.1; Pulse Ox 99% ; Weight 104.33 kg; Height 5 jl7 ft. 5 in. ; Pain 8/10; 13:53 BP 132 / 71; Pulse 65; Resp 17; Pulse Ox 100% ; Pain 2/10; jl7 10:55 Body Mass Index 38.27 (104.33 kg, 165.1 cm) jl7 10:55 Pain Scale: Adult jl7 13:53 Pain Scale: Adult 7 ED Course: 10:46 Patient arrived in ED. im 10:47 Yan Aragon PA is PHCP. [facility] 10:47 Dennis Garcia MD is Attending Physician. [facility] 10:57 Triage completed. jl7 10:57 Arm band placed on right wrist. jl7 11:00 Alberta Holder, URSULA is Primary Nurse. jl7 11:11 CT Stone Protocol In Process Unspecified. EDMS 11:57 Patient has correct armband on for positive identification. jl7 11:57 Urine collected: clean catch specimen, clear. [facility] 13:01 John Gloria MD is Referral Physician. [facility] 13:53 No provider procedures requiring assistance completed. Patient did not have IV access jl7 during this emergency room visit. Administered Medications: 11:16 Drug: Ketorolac IM 30 mg Route: IM; Site: left deltoid; jl7 11:58 Follow up: Response: No adverse reaction; Pain is decreased jl7 13:40 Drug: Rocephin (cefTRIAXone) IM 1 grams Route: IM; Site: right ventrogluteal; jl7 13:53 Follow up: Response: No adverse reaction jl7 Medication: 11:57 VIS not applicable for this client. jl Outcome: 13:02 Discharge ordered by . ziggy 13:53 Discharged to home ambulatory. jlDay 13:53 Condition: stable 13:53 Discharge instructions given to patient, Instructed on discharge instructions, follow up and referral plans. medication usage, Demonstrated understanding of instructions, follow-up care, medications, Prescriptions given X 3. 13:54 Patient left the ED. jl7 Signatures: Dispatcher [employer] EDMS Yan Aragon PA PA jmm Leal, Jahala, RN RN jl7 Maria Dolores Castillo Corrections: (The following items were deleted from the chart) 10:57 10:57 Allergies: No Known Allergies; tip jlDay
--- NOTE | 2023-02-22 13:03 | EDPHYS ---
Physician Documentation [facility] Name: Shelby Pop Age: 47 yrs Sex: Female : 1975 Arrival Date: 02/22/2023 Time: 10:42 Bed 12 Private MD: ED Physician Dennis Garcia HPI: 02/22 10:54 This 47 yrs old Female presents to ER via Ambulatory with complaints of Low jmm Back Pain. 10:54 The patient presents with pain that is acute. Is a 47-year-old female with history of jmm depression that presents emerged part with complaints of lower back pain which radiates to the right side. Denies vomiting. Pain is uncontrolled with prescribed pain medication. Denies fever, denies vomiting.. 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 - Social history:: Smoking status: Patient denies any tobacco usage or history of. ROS: 10:54 Constitutional: Negative for fever, chills, and weight loss, Cardiovascular: Negative jmm for chest pain, palpitations, and edema, Respiratory: Negative for shortness of breath, cough, wheezing, and pleuritic chest pain. 10:54 Back: Positive for pain with movement. 10:54 All other systems are negative. Exam: 10:54 Constitutional: This is a well developed, well nourished patient who is awake, alert, jmm and in no acute distress. Head/Face: atraumatic. Eyes: EOMI, no conjunctival erythema appreciated ENT: Moist Mucus Membranes Neck: Trachea midline, Supple Chest/axilla: Normal chest wall appearance and motion. Cardiovascular: Regular rate and rhythm. No edema appreciated Respiratory: Normal respirations, no respiratory distress appreciated Abdomen/GI: Non distended Skin: General appearance color normal 10:54 MS/ Extremity: Moves all extremities, no obvious deformities appreciated, no edema noted to the lower extremities Neuro: Awake and alert Psych: Behavior is normal, Mood is normal, Patient is cooperative and pleasant 10:54 Back: pain, that is moderate, of the lumbar area and right low back. Vital Signs: 10:55 BP 135 / 78; Pulse 91; Resp 17; Temp 98.1; Pulse Ox 99% ; Weight 104.33 kg; Height 5 7 ft. 5 in. ; Pain 8/10; 13:53 BP 132 / 71; Pulse 65; Resp 17; Pulse Ox 100% ; Pain 2/10; jl7 10:55 Body Mass Index 38.27 (104.33 kg, 165.1 cm) [facility] 10:55 Pain Scale: Adult 7 13:53 Pain Scale: Adult jl7 MDM: 10:54 Differential diagnosis: Back strain, sciatica, pyelonephritis, ureterolithiasis. Data [facility] reviewed: vital signs, nurses notes. 10:59 Patient medically screened. [facility] 13:53 Consideration of Admission/Observation Escalation of care including [facility] admission/observation considered. 13:53 I considered the following discharge prescriptions or medication management in the [facility] emergency department Medications were administered in the Emergency Department. See MAR. Counseling: I had a detailed discussion with the patient and/or guardian regarding: the historical points, exam findings, and any diagnostic results supporting the discharge/admit diagnosis, radiology results, the need for outpatient follow up, to return to the emergency department if symptoms worsen or persist or if there are any questions or concerns that arise at home. 02/22 11:32 Order name: Urinalysis w/ reflexes; Complete Time: 12:08 [facility] 02/22 10:59 Order name: CT Stone Protocol; Complete Time: 11:31 [facility] Administered Medications: 11:16 Drug: Ketorolac IM 30 mg Route: IM; Site: left deltoid; [facility] 11:58 Follow up: Response: No adverse reaction; Pain is decreased [facility] 13:40 Drug: Rocephin (cefTRIAXone) IM 1 grams Route: IM; Site: right ventrogluteal; 7 13:53 Follow up: Response: No adverse reaction [facility] Disposition: 21:11 Co-signature as Attending Physician, Dennis Garcia MD I reviewed the patient's care rt provided by the Advanced Practice Provider and agree with the diagnosis and treatment plan. Disposition Summary: 02/22/23 13:02 Discharge Ordered Location: Home [facility] Condition: Stable [facility] Diagnosis - Calculus of kidney [facility] - UTI/ Urinary tract infection, site not specified jm - Low back pain [facility] Followup: [facility] - With: John Gloria MD - When: 2 - 3 days - Reason: Recheck today's complaints, Continuance of care, Re-evaluation by your physician Discharge Instructions: - Discharge Summary Sheet jm - Kidney Stones jmm - Urinary Tract Infection, Adult [facility] Forms: - Medication Reconciliation Form [facility] - Thank You Letter [facility] - Antibiotic Education [facility] - Prescription Opioid Use [facility] - [email or web address] [facility] Prescriptions: - Zanaflex 4 mg Oral Tablet - take 1 tablet by ORAL route every 8 hours As needed; 20 tablet; Refills: 0, [facility] Product Selection Permitted - Diclofenac Sodium 75 mg Oral Tablet Sustained Release - take 1 tablet by ORAL route 2 times per day; 30 tablet; Refills: 0, Product [facility] Selection Permitted - cefpodoxime 200 mg Oral Tablet - take 1 tablet by ORAL route every 12 hours for 10 days with food; 20 tablet; [facility] Refills: 0, Product Selection Permitted Signatures: Dispatcher [facility] Yan Aragon PA PA jmm Leal, Jahala, RN RN jl7 Dennis Garcia MD MD rt Corrections: (The following items were deleted from the chart) 10:57 10:57 Allergies: No Known Allergies; jl7 jl7 11:28 10:55 Lumbar Spine 3 Views+[email or web address] ordered. [facility]
[2023-02-22] MEDS ORDERED: LIDOCAINE 1% MPF 2 ML AMPULE ONE (13:51)
[2023-02-22] MEDS ORDERED: CEFTRIAXONE 1000 MG/VIAL ONE (13:51)
[2023-02-22 13:59] VITALS: TEMP 98.1
[2023-02-22 14:01] VITALS: BP 132/71; O2SAT 100
== END 2023-02-22 13:54 | disposition home or self-care (01) ==
LOC: ER 10:42
DX: N20.0 Calculus of kidney (principal); N39.0 Urinary tract infection, site not specified; F32.A Depression, unspecified; Z88.2 Allergy status to sulfonamides
CPT/HCPCS: 81001; 76377; 74176; 96372; 99284; J0696